=== PATIENT | male | born 1950 | race Caucasian/White ===

== ENCOUNTER 2024-09-08 12:44 | Outpatient (CLI) | payer MEDICARE, SELFPAY ==
--- NOTE | ~2024-09-08 | PE_ITS ---
EXAMINATION: PET_PETPSMAST_PT DATE: 09/08/2024 14:58 INDICATION: Prostate cancer TECHNIQUE: 5.717 mCi of Illucix Ga-68([id number]) was administered i.v. Low dose computed nell graphy (CT) images were acquired from the base of the brain to the base of the brain to the proximal thighs for attenuation correction and anatomic localization. Positron emission tomography (PET) image s were acquired in the same distribution beginning 84 minutes after injection. Images including fused PET/CT images were reconstructed in axial, coronal, and sagittal planes. Automated exposure control technique was employed. The dose-length product was 1192.44mGy-cm. COMPARISON: None FINDINGS: Head/neck: Typical pattern of symmetric physiologic increased activity in the lacrimal, parotid and submandibula r glands as well as along the mucosa of the nasal and oral cavities, pharynx and hypopharynx. No path ologically enlarged cervical lymphadenopathy or suspicious foci of increased uptake in the visualized head or neck. Chest: Mild dependent atelectasis in the bilateral lower lobes. Small region of relatively lucent air trappi ng at the medial aspect of the left apex. No suspicious pulmonary nodules, pneumonia, pulmonary edema or pleural effusion. Heart size normal. Atherosclerotic coronary artery calcific lesion. No pericard ial effusion. Ectatic ascending thoracic aorta measuring up to 4.1 cm maximal diameter. No pathologic ally enlarged or PSMA avid thoracic lymphadenopathy. Abdomen/pelvis/proximal thighs: Physiologic renal accumulation and excretion of activity in the kidneys, bladder and along portions o f ureters. Mild prostatomegaly measuring 4.1 x 3.5 cm. There is asymmetric mild increased uptake william g the left posterior aspect of the prostate with maximal SUV of 4.9 likely representing the site of t he reported primary prostate cancer. Normal degree and slightly heterogenous pattern of increased upt helene throughout the liver and spleen without radiologic correlate or dominant PSMA avid lesion. Cholec ystectomy clips the gallbladder fossa. The pancreas and bilateral adrenal glands are normal. Moderate uptake scattered throughout the bowels with typical duodenal and proximal jejunal predominance and w ithout radiologic correlate, also likely physiologic. Postoperative change of likely prior left ingui nal hernia mesh repair. No other abnormal foci of increased uptake or pathologically enlarged lymphad enopathy in the abdomen, pelvis or proximal thighs. Musculoskeletal: There is linear mild uptake extending horizontally along the severely narrowed L4-L5 and right-sided the L3-L4 disc spaces, the former with maximal SUV of 4.8 and the latter with maximal SUV of 2.8. The re are associated degenerative endplate changes but no definitive lytic or blastic bone lesion and fa vor inflammatory related activities related to degenerative disc disease over metastatic disease. No other suspicious lytic, blastic or abnormally PSMA avid bone lesions. Reverse left total shoulder art hroplasty. IMPRESSION: 1. Mild uptake at the left posterior aspect of the mildly enlarged prostate consistent with primary p rostate cancer. 2. Thin bands of mild uptake aligned along the severely narrowed L5 for L5 and right-sided L3-L4 disc spaces with corresponding degenerative endplate changes but no definitive underlying lytic or blasti c bone lesion to elevate suspicion for metastatic disease and this more likely inflammatory related t o the degenerative disc disease. Also arguing against metastatic disease in the absence of any other evident metastatic disease. Reviewed, dictated and finalized at location A. IMPRESSION: 1. Mild uptake at the left posterior aspect of the mildly enlarged prostate con sistent with primary prostate cancer. 2. Thin bands of mild uptake aligned along the severely narrowed L5 for L5 and right-sided L3-L4 disc spaces with corresponding degenerative endplate changes but no definitive underlying lytic or blastic bone lesion to elevate suspicion for metastatic disease and this more likely inflammatory related to the degener ative disc disease. Also arguing against metastatic disease in the absence of a ny other evident metastatic disease.
--- OUTSIDE RECORDS SUMMARY | 2024-09-08 12:49 | XMS_ITS | Clinical Summary ---
Author Organization [facility] Medical Office Building A Address [address] [place] [address] Care Team Providers Care Borough Coordinator Name Role Phone Ki Roblero MD Primary Care Provider + Lory Desouza Unavailable Allergies Active Allergy Reactions Criticality Noted Date Comments Penicillin V Rash Medium Penicillins Rash Medium Reaction: Swelling, , Reaction: Unknown, , Medications fluticasone (FLONASE) 50 mcg/actuation nasal spray inhale 2 spray by Intranasal route every day in each nostril 1 11 1 Active omega-3 fatty acids-fish oil 340-1,000 mg capsule 0 0 Active rosuvastatin (CRESTOR) 20 mg tablet Take 1 tablet (20 mg total) by mouth daily 2 Active ascorbic acid (VITAMIN C) 500 mg tablet,chewable Take 1 tablet/chew tab (500 mg total) by mouth 2 (two) times a day 60 tablet/chew tab 2 Active aspirin 81 mg enteric coated tabletIndicatio ns:prevention of thrombosis Take 1 tablet (81 mg total) by mouth 2 (two) times a day for 14 days 28 tablet 2 Active cholecalciferol (VITAMIN D-3) 2000 unit capsule Take 1 capsule (2,000 Units total) by mouth daily 30 capsule 2 Active senna-docusate (PERICOLACE) 8.6-50 mg 1-2 times daily as needed for constipation 60 tablet [address] (DEPAKOTE) 250 mg EC tabletIndicatio ns:Recurrent major depression in partial remission TAKE 1 TABLET BY MOUTH THREE TIMES DAILY 270 tablet 5 Active PARoxetine (PAXIL) 40 mg tabletIndicatio ns:Recurrent major depression in partial remission TAKE 1 TABLET BY MOUTH EVERY MORNING 90 tablet 5 Active LORazepam (ATIVAN) 1 mg tabletIndicatio ns:anxiety TAKE 1 TABLET BY MOUTH UP TO FOUR TIMES DAILY FOR ANXIETY 120 tablet 1 5 Active Active Problems Problem Noted Date Diagnosed Date Family history of colon cancer 06/04/2022 Personal history of colonic polyps 06/04/2022 Hemorrhoids 06/04/2022 Primary osteoarthritis of left shoulder 08/17/19 22 Overview (08/16/2021): Added automatically from request for surgery [id number] Arthritis of left acromioclavicular joint 2021 Overview (08/16/2021): Added automatically from request for surgery [id number] Nontraumatic tear of left rotator cuff 2 Overview (08/16/2021): Added automatically from request for surgery [id number] Superior glenoid labrum lesion of left shoulder 08/16/2021 Overview (08/16/2021): Added automatically from request for surgery [id number] Hearing loss of left ear 01/14/2019 Dental caries 01/14/2019 Assessment & Plan (01/14/2019 1:25 PM AIRCRAFT SALES REPRESENTATIVE): Recommend Dental Evaluation List of dental providers contact information provided today BMI 27.0-27.9,adult 12/23/2016 Assessment & Plan (12/23/2016 9:13 AM AIRCRAFT SALES REPRESENTATIVE): Recommended patient to continue to increase heart healthy diet with adequate fruits, vegetables, and plenty of water along with mild-moderate daily exercise as tolerated. Acute pain of right wrist 12/23/2016 Assessment & Plan (12/23/2016 9:26 AM AIRCRAFT SALES REPRESENTATIVE): I advised patient to try splinting his rest along with naproxen 500 mg b.i.d. with food Additionally, imaging was completed due to the pinpoint tenderness to ensure that there is no LN fracture associated with his acute injury. Of right hand and wrist. Will follow up with patient regarding results of imaging tomorrow over the phone and need for additional management Elevated blood pressure reading 12/23/2016 Assessment & Plan (12/23/2016 9:27 AM AIRCRAFT SALES REPRESENTATIVE): I advised patient to continue with dash diet and monitoring of blood pressures as he has a cuff at home. I also advised patient to touch base with Dr. roblero new office within the next 1-2 weeks to check on blood pressure ensure that is adequately he told also advised to avoid uoip-geh-bwxyyld decongestants or stimulants of any sort and he will continue to monitor for any signs and symptoms of elevated blood pressure readings which was educated about office today. Healthcare maintenance 2016 Medication management 2016 Bipolar disorder, in full re mission, most recent episode mixed 2016 IVCD (intraventricular conduction defect) 2016 Skin lesion of back 2016 Benign neoplasm of large intestine 06/25/2013 Overview (05/14/2016): BENIGN NEOPLASM LG BOWEL Disorder of shoulder 06/25/2013 Overview (05/16/2016): SHOULDER REGION DIS NEC Anxiety state 06/25/2013 Overview (05/16/2016): ANXIETY STATE NOS Multiple-type hyperlipidemia 06/25/2013 Overview (05/16/2016): MIXED HYPERLIPIDEMIA Encounters Date Type Department Care Team Description 06/21/2024 8:52 AM CDT - 06/21/2024 11:59 PM CDT Hospital Encounter [facility] [address] [place] [address] Elevated prostate specific antigen (PSA) Discharge Disposition: Discharge to home or self care from Last 3 Months Immunizations Immunization Administration Dates Next Due Influenza, Quadrivalent, Spl it, Preservative Free, Intradermal 02/06/2016,01/18/2015 Influenza, Split 12/28/2012,12/25/2011, 0 Influenza, Trivalent, High D ose, Split, Preservative Free, Intramuscular 12/23/2016 Influenza, Trivalent, IM (MDV) 11/13/2010,2008 Influenza, Trivalent, Recomb inant, Egg Free, Preservative Free, Antibiotic Free, IM (FLUBLOK) 01/10/2014,01/10/2014 Pneumococcal Conjugate PCV 13 2016 Tdap 08/23/2008 ZOSTER LIVE 01/19/2012 Surgical History Surgery Date Site/Laterality Comments CARPAL TUNNEL RELEASE 2009 Carpal tunnel release OTHER SURGICAL HISTORY Both Shoulder surgery BACK SURGERY Back surgery CARPAL TUNNEL RELEASE Carpal tunnel release TONSILLECTOMY Tonsillectomy HERNIA REPAIR Hernia repair APPENDECTOMY Appendectomy EYE SURGERY Left eye Surgery BACK SURGERY 2001 Back surgery CARPAL TUNNEL RELEASE 2001 Bilateral Carpal tunnel release KNEE ARTHROSCOPY 2012 Right Arthroscopy knee SHOULDER SURGERY Bilateral shoulder surgery OTHER SURGICAL HISTORY right knee surgery / arthroscopic INGUINAL HERNIA REPAIR Hernia repair, inguinal LAPAROSCOPIC CHOLECYSTECTOMY 2014 Cholecystectomy, laparoscopic COLONOSCOPY 10/11/2015 - 11/09/2015 Medical History Medical History Date Comments Hx Other Medical 2006 stress test Hx Other Medical 2004 cxr Hx Other Medical 1996 appendix Hx Other Medical 1955 tonsilectomy Hx Other Medical 2008 ulnar n reposit ion Hx Other Medical Hernia repair, umbilical Hx Other Medical 2000 back surgery Hx Other Medical radial n. surge ry Hx Other Medical eye surgery x2- 3 Hx Other Medical 02/2009 B/L shoulder dunlap rgeries Depression Depression Hyperlipidemia Hyperlipidemia Anxiety disorder Anxiety Hx Other Medical 02/20/2010 C4-5 microendos copic foraminotomy; Laterality: right Alcoholism (HCC) Alcoholism Hx Other Medical 2009 left andr right rotator cuff repair Hx Other Medical eye surgery Hx Other Medical elbow surgery Hx Other Medical 10/06/2011 knee arthroscop y; Laterality: right Hx Other Medical 02/23/2012 Knee arthroscop y; Laterality: right Hx Other Medical Cholecystectomy GERD (gastroesophageal reflu x disease) Family History Medical History Relation Name Comments Other Brother 3 Alive and well; Other Brother 4 Alive and well; Other Father Alive and well; Coronary artery disease Maternal Grandmother Coronary artery disease; Cancer Mother Cancer -; /Canc er; GDS 04/20/2014 -ovarian Ovarian cancer Mother Cancer -ovari an; Diabetes type II Mother's Brother 1 Diabe donnie -Type II; Leukemia Mother's Brother 2 Cancer -l eukemia; Other Other 1 No family histo ry of Hypertension; Heart disease Other 2 Heart disease; Breast cancer Other 3 Family history of Cancer, breast; Stroke Paternal Grandmother Stroke; Cancer Sister Cancer -; Relation Name Status Comments Brother 1 Alive Brother 2 Alive Brother 3 Brother 4 Father Alive Maternal Grandmother Mother Mother's Brother 1 Mother's Brother 2 Other 1 Other 2 Other 3 Paternal Grandmother Sister Social History Tobacco Use Types Packs/Day Years Used Date Smoking Tobacco: Former Smokeless Tobacco: Never Alcohol Use Standard Drinks/Week Comments No 0 (1 standard drink = 0.6 oz pur e alcohol) AUDIT-C Answer Date Recorded Frequency of Alcohol Consumption Not on file 08/29/2021 Q2: How many drinks containi ng alcohol do you have on a typical day when you are drinking? Patient does not drink Frequency of Binge Drinking Not on file 08/10 Personal Safety Answer Date Recorded Have you ever been in or are you currently in a harmful physical or emotional relationship or is someone making you feel afraid or unsafe? Denies 06/24/2022 Sex and Gender Information Value Date Recorded Sex Assigned at Not on file Legal Sex Male 11:51 PM AIRCRAFT SALES REPRESENTATIVE Gender Identity Not on file Sexual Orientation Not on file Obstetrics History Last Filed Vital Signs Vital Sign Reading Time Taken Comments Blood Pressure 146/99 09/09/2022 1:39 PM CDT Pulse 76 09/09/2022 1:39 PM CDT Temperature 36.8 C (98.2 F) 06/24/2022 8:45 AM CDT Respiratory Rate 18 06/24/2022 8:45 AM CDT Oxygen Saturation 99% 06/24/2022 8:45 AM CDT Inhaled Oxygen Concentration - - Weight 86.6 kg (191 lb) 09/09/2022 1:39 PM CDT Height 182.9 cm (6') 09/09/2022 1:39 PM CDT Body Mass Index 25.9 09/09/2022 1:39 PM CDT Plan of Treatment Health Maintenance Due Date Last Done Comments Fall Risk Assessment 1950 Hepatitis B Screening 08/06/1969 Abdominal Aortic Aneurysm (A AA) Screen 08/06/2016 04/13/2014 Well Visit 65+ 2017 2016 Depression Screening 12/23/2017 12/23/2016, 08/08/19 17 DTaP/Tdap/Td Vaccine (2 - Td or Tdap) 08/23/2018 08/23/2008 Zoster Vaccine (3 of 3) 06/13/2019 04/18/2019, 01/18 Covid-19 Vaccine (4 - 2023-2 5 season) 2023 01/21/2021, 04/28/2020, 04/07/2020 Influenza Vaccine (#1) 2024 , 11/30/2019, 04/18/2019, Additional history exists Colon Cancer Screening-Colonoscopy 06/25/2027 06/24/2022, 10/25/2015, 10/25/2015, Additional history exists Hepatitis C Screening Completed 04/11/2014 Pneumococcal vaccine 65+ Completed 04/18/2019, 07/11 Colon Cancer Screening-CT Colonography Discontinued 06/24/2022, 10/25/2015, 10/25/2015, Additional history exists Colon Cancer Screening-DNA Stool Discontinued 06/24/2022, 10/25/2015, 10/25/2015, Additional history exists Colon Cancer Screening-FIT Discontinued 06/24, 10/25/2015, 10/25/2015, Additional history exists Colon Cancer Screening-Sigmoidoscopy Discontinued 06/24/2022, 10/25/2015, 10/25/2015, Additional history exists Medical Devices Implanted Type Area Joist Setter Device Identifier Shelf Expiration Date Model / Serial / Lot Exactech Reverse Torque Define Shoulder Kit Screw 320-20-00 - [id number] - [id number] Implanted:Qty: 1 on 09/05/2021 by Cem Guzman MD at [facility] Left: Shoulder Exactech 08/18/2026 320-20-00 / [id number] / Exactech Equinoxe Lock Reverse Shoulder Glenosphere Screw Bone 320-15-05 - [id number] - [id number] Implanted:Qty: 1 on 09/05/2021 by Cem Guzman MD at [facility] Left: Shoulder Exactech 08/05/2026 320-15-05 / [id number] / Exactech Equinoxe Superior Posterior Augment Shoulder Left 10d 8d 320-15-07 - [id number] - [id number] Implanted:Qty: 1 on 09/05/2021 by Cem Guzman MD at [facility] Left: Shoulder Exactech 03/27/2030 320-15- / [id number] / Exactech Equinoxe 4.5mm 46mm Kit Compression Lock Cap Reverse Shoulder 320-20-46 - [id number] - [id number] Implanted:Qty: 1 on 09/05/2021 by Cem Guzman MD at [facility] Left: Shoulder Exactech 07/07/2023 320-20-46 / [id number] / Exactech Equinoxe 4.5mm 38mm Kit Compression Lock Cap Reverse Shoulder 320-20-38 - [id number] - [id number] Implanted:Qty: 1 on 09/05/2021 by Cem Guzman MD at [facility] Left: Shoulder Exactech 07/17/2026 320-20-38 / [id number] / Exactech Stem 70mm 11mm Humeral Equinoxe Shoulder Sterile 300-30-11 - [id number] - [id number] Implanted:Qty: 1 on 09/05/2021 by Cem Guzman MD at [facility] Left: Shoulder Exactech 07/23/2030 300-30-11 / [id number] / Exactech Component 42mm Glenosphere Extended Locking Cap Kit 320-06-42 - [id number] - [id number] Implanted:Qty: 1 on 09/05/2021 by Cem Guzman MD at [facility] Left: Shoulder Exactech 08/01/2029 320-06-42 / [id number] / Exactech Equinoxe Reverse Shoulder +0mm Tray Humeral Adapter 320-10-00 - [id number] - [id number] Implanted:Qty: 1 on 09/05/2021 by Cem uGzman MD at [facility] Left: Shoulder Exactech 08/13/2031 320-10-00 / [id number] / Exactech Equinoxe 42mm Reverse Shoulder +0mm Liner Humeral 320-42-00 - [id number] - [id number] Implanted:Qty: 1 on 09/05/2021 by Cem Guzman MD at [facility] Left: Shoulder Exactech 07/02/2025 320-42-00 / [id number] / Procedures Procedure Name Priority Date/Time Associated Diagnosis Comments MRI PELVIS PROSTATE W WO CONTRAST Schedule Routine, Read Routine (OP Routine) 06/21/2024 11:08 AM CDT Elevated prostate specific antigen (PSA) COLONOSCOPY 06/24/2022 7:[address] ABDOMEN PELVIS W CONTRAST Routine 04/13/2014 11:30 AM AIRCRAFT SALES REPRESENTATIVE SERUM HEPATITIS C AB Routine 04/11/2014 1:45 PM AIRCRAFT SALES REPRESENTATIVE from Last 3 Months or Most Recently Relevant to Health Maintenance Results * MRI Pelvis Prostate W WO Contrast (06/21/2024 11:08 AM CDT) Anatomical Region Laterality Modality Body N/A Magnetic Resonan ce 06/21/2024 1:2 1 PM CDT Impressions 06/21/2024 3:03 PM CDT 1. A lesion in the left junction of medial and lateral peripheral zone at the mid gland is at high suspicion for malignancy with an overall PI-RADS score of 4. EPE=0. Dictated by: Thomas Quinteros MD The radiology attending physician has personally reviewed this study, and had reviewed and/or edited this written report and agrees with it. Electronically signed by: Damien Calabrese M.D. Narrative 06/21/2024 3:03 PM CDT EXAMINATION: MAGNETIC RESONANCE IMAGING OF THE PELVIS WITHOUT AND WITH CONTRAST HISTORY: Elevated PSA of 6.44 months ago, increased from 1.4 in 2016 TECHNIQUE: MR imaging of the prostate gland was performed with a torso phased array coil prior to and following administration of intravenous gadolinium. Protocol: Prostate 3T Contrast: Gadoterate Meglumine 20 mL COMPARISON: None FINDINGS: Prostate volume: 38 cc The prostate transition zone is enlarged with benign prostatic hyperplasia. The prostate was assessed using the PI-RADS version 2.1 scoring system. The following lesions are of at least intermediate suspicion (PI-RADS 3 or greater): Lesion 1: Side: left Location: junction of medial and lateral Zone: peripheral zone Craniocaudal: mid gland Aceves images: series 11, image 28 Size: 0.4 mL; largest axial dimensions 1.0 x 0.8 cm Extraprostatic extension: - tumor contact length with prostate margin: 8 mm - margin bulge/irregularity: no - rectoprostatic angle obliteration: no - neurovascular bundle asymmetry: no - gross extraprostatic extension: no - overall EPE grade: 0 (no suspicion for pathologic EPE) T2WI score: 3 DWI score: 3 DCE: positive Overall PI-RADS v2.1 assessment: 4 Staging Information: No enlarged lymph nodes are identified. No suspicious osseous lesions are identified. Other findings: Normal bladder and imaged bowel. Bilateral hydroceles. No ascites. Procedure Note Damien Calabrese MD - 06/21/2024 EXAMINATION: MAGNETIC RESONANCE IMAGING OF THE PELVIS WITHOUT AND WITH CONTRAST HISTORY: Elevated PSA of 6.44 months ago, increased from 1.4 in 2016 TECHNIQUE: MR imaging of the prostate gland was performed with a torso phased array coil prior to and following administration of intravenous gadolinium. Protocol: Prostate 3T Contrast: Gadoterate Meglumine 20 mL COMPARISON: None FINDINGS: Prostate volume: 38 cc The prostate transition zone is enlarged with benign prostatic hyperplasia. The prostate was assessed using the PI-RADS version 2.1 scoring system. The following lesions are of at least intermediate suspicion (PI-RADS 3 or greater): Lesion 1: Side: left Location: junction of medial and lateral Zone: peripheral zone Craniocaudal: mid gland Aceves images: series 11, image 28 Size: 0.4 mL; largest axial dimensions 1.0 x 0.8 cm Extraprostatic extension: - tumor contact length with prostate margin: 8 mm - margin bulge/irregularity: no - rectoprostatic angle obliteration: no - neurovascular bundle asymmetry: no - gross extraprostatic extension: no - overall EPE grade: 0 (no suspicion for pathologic EPE) T2WI score: 3 DWI score: 3 DCE: positive Overall PI-RADS v2.1 assessment: 4 Staging Information: No enlarged lymph nodes are identified. No suspicious osseous lesions are identified. Other findings: Normal bladder and imaged bowel. Bilateral hydroceles. No ascites. IMPRESSION: 1. A lesion in the left junction of medial and lateral peripheral zone at the mid gland is at high suspicion for malignancy with an overall PI-RADS score of 4. EPE=0. Dictated by: Thomas Quinteros MD The radiology attending physician has personally reviewed this study, and had reviewed and/or edited this written report and agrees with it. Electronically signed by: Damien Calabrese M.D. us Richar Diaz MD IMG MRI PROCEDURES Final Resul t * COLONOSCOPY (06/24/2022 7:13 AM CDT) Anatomical Region Laterality Modality Other Narrative Procedure Note Adam Muñiz MD - 06/24/2022 7:13 AM CDT [facility] Patient Name: Cristofer Hurtado Procedure Date: 06/24/2022 7:13 AM Date of : 1950 Admit Type: Outpatient Age: 71 Gender: Male Attending MD: Adam Muñiz M.D. Room: [facility] ENDOSCOPY ROOM 2 Note Status: Finalized Patient Profile: Refer to note in patient chart for documentation of history and physical. Procedure: Colonoscopy Indications: High risk colon cancer surveillance: Personalhistory of colonic polyps, Last colonoscopy: October2015 Referring MD: Ki Roblero M.D. Providers: Adam Muñiz M.D. Impression: - Hemorrhoids found on perianal exam. - One 3 mm polyp in the ascending colon, removedwith a cold snare. Resected and retrieved. - The examination was otherwise normal. Recommendation: - Discharge patient to home. - Resume previous diet. - Continue present medications. - Await pathology results. - Repeat colonoscopy in 5 years for surveillance. - Return to primary care physician as previously scheduled. Medicines: Propofol per Anesthesia Complications: No immediate complications. Estimated Blood Loss: Estimated blood loss: none. Procedure: Pre-Anesthesia Assessment: - This assessment was completed [Time ofAssessment] prior to the administration of sedation. The benefits, risks and alternatives of theprocedure and sedation were discussed and informed consentwas obtained. All questions were answered. Please referto the signed informed consent document in the medical record. The bowel preparation used was Miralax and bisacodyl tablets via split dose instruction. The scope was passed under direct vision. TheColonoscope [id number] was introduced through the anus and advanced to the the terminal ileum. The colonoscopy was performed without difficulty. The patient tolerated the procedure well. The qualityof the bowel preparation was good. The terminal ileum, ileocecal valve, appendiceal orifice, and rectumwere photographed. Findings: Hemorrhoids were found on perianal exam. A 3 mm polyp was found in the ascending colon. The polyp was sessile. The polyp was removed with a cold snare. Resection and retrieval were complete. Verification of patient identification for the specimen was done by the physician and nurse using the patient's name and birthdate. Estimated blood loss was minimal. The exam was otherwise without abnormality. Electronically signed by Adam Muñiz M.D. Adam Muñiz M.D. 06/24/2022 8:13:12 AM Number of Addenda: 0 Note Initiated On: 06/24/2022 7:13 AM Procedure Code(s): --- Professional --- 35828, Colonoscopy, flexible; with removal of tumor(s), polyp(s), or other lesion(s) by snare technique --- Technical --- 29103, Colonoscopy, flexible; with removal of tumor(s), polyp(s), or other lesion(s) by snare technique Diagnosis Code(s): --- Professional --- D12.2, Benign neoplasm of ascending colon K64.9, Unspecified hemorrhoids Z86.010, Personal history of colonic polyps --- Technical --- D12.2, Benign neoplasm of ascending colon K64.9, Unspecified hemorrhoids Z86.010, Personal history of colonic polyps CPT copyright 2020 [employer]. All rights reserved. The codes documented in this report are preliminary and upon waxer reviewmay be revised to meet current compliance requirements. Recognized by the [employer] for promoting quality in endoscopy us Adam Muñiz MD ENDOSCOPY PROCEDURES Final Re sult * CT Abdomen Pelvis W Contrast (04/13/2014 11:30 AM AIRCRAFT SALES REPRESENTATIVE) Anatomical Region Laterality Modality Body N/A Computed Tomogra phy 04/13/2014 11:3 0 AM AIRCRAFT SALES REPRESENTATIVE Narrative 04/13/2014 6:[address] [address] Abd/Pel W [id number] Acc#: [id number] DATE OF EXAM: Apr 13 2014 CLINICAL HISTORY: Anorexia. Loss of appetite. RESULT: Helical CT scan of the abdomen and pelvis obtained following intravenous and oral administration of contrast. 100 ml of Optiray 320. Images from the lung bases to the ischial tuberosities. Mildly diminished attenuation liver parenchyma consistent with hepatic steatosis. Two small stones are seen within the gallbladder, larger of the two measuring 3 mm. No pericholecystic fluid or inflammation identified. Spleen size within the normal range. No pancreatic mass identified. Kidneys demonstrate no evidence of hydronephrosis. No adrenal mass identified. Air and fecal material are seen throughout the colon. No significantly dilated small bowel loops are evident. Prostate gland is somewhat prominent, the transverse dimension of 5.0 cm. Small prostate calcification to the left of the midline. Urinary bladder is well distended with urine and contrast. Normal contour. In the lung bases, no infiltrate or effusion identified. Degenerative changes lumbar spine and lower thoracic spine with spurring. Degenerative disc disease particularly L4-5 and L5-S1. Small umbilical hernia containing only adipose tissue. Fairly minimal calcification abdominal aorta and iliac arteries consistent with arteriosclerotic changes. A few retroperitoneal lymph nodes primarily periaortic region on the left. These are not significantly enlarged, and of questionable clinical significance. IMPRESSION: 1. CHOLELITHIASIS, WITH TWO SMALL STONES SEEN. NO PERICHOLECYSTIC FLUID OR INFLAMMATION IDENTIFIED. 2. MILD HEPATIC STEATOSIS. 3. PROSTATOMEGALY. Interpreting Physician: KATIUSKA MCLAIN M.D. Read on: Apr 13 2014 11:46A Transcribed by: janet On: Apr 13 2014 3:01P Approved Electronically by: KATIUSKA MCLAIN M.D. on: Apr 13 2014 6:05P Attending: DR KI ROBLERO Requesting: DR KI ROBLERO Requesting Fax: -- Attending Fax: -- Attending ID: [id number] Requesting ID: [id number] Report To 1 ID: [id number] Report To 1 Name: DR KI ROBLERO Report To 1 FAX: -- NextGen Order #: Procedure Note Provider, MD Wilfrido - 06/04/2016 CT Abd/Pel W [id number] Acc#: [id number] DATE OF EXAM: Apr 13 2014 CLINICAL HISTORY: Anorexia. Loss of appetite. RESULT: Helical CT scan of the abdomen and pelvis obtained following intravenousand oral administration of contrast. 100 ml of Optiray 320. Images fromthe lung bases to the ischial tuberosities. Mildly diminished attenuationliver parenchyma consistent with hepatic steatosis. Two small stones areseen within the gallbladder, larger of the two measuring 3 mm. Nopericholecystic fluid or inflammation identified. Spleen size within thenormal range. No pancreatic mass identified. Kidneys demonstrate noevidence of hydronephrosis. No adrenal mass identified. Air and fecalmaterial are seen throughout the colon. No significantly dilated smallbowel loops are evident. Prostate gland is somewhat prominent, thetransverse dimension of 5.0 cm. Small prostate calcification to the leftof the midline. Urinary bladder is well distended with urine andcontrast. Normal contour. In the lung bases, no infiltrate or effusionidentified. Degenerative changes lumbar spine and lower thoracic spine with spurring. Degenerative disc disease particularly L4-5 andL5-S1. Small umbilical hernia containing only adipose tissue. Fairlyminimal calcification abdominal aorta and iliac arteries consistent witharteriosclerotic changes. A few retroperitoneal lymph nodes primarilyperiaortic region on the left. These are not significantly enlarged, andof questionable clinical significance. IMPRESSION: 1. CHOLELITHIASIS, WITH TWO SMALL STONES SEEN. NO PERICHOLECYSTIC FLUIDOR INFLAMMATION IDENTIFIED. 2. MILD HEPATIC STEATOSIS. 3. PROSTATOMEGALY. Interpreting Physician: KATIUSKA MCLAIN M.D. Read on: Apr 13 2014 11:46A Transcribed by: janet On: Apr 13 2014 3:01P Approved Electronically by: KATIUSKA MCLAIN M.D. on: Apr 13 2014 6:05P Attending: DR KI ROBLERO Requesting: DR KI ROBLERO Requesting Fax: -- Attending Fax: -- Attending ID: [id number] Requesting ID: [id number] Report To 1 ID: [id number] Report To 1 Name: DR KI ROBLERO Report To 1 FAX: -- NextGen Order #: us Historical Provider IMG CT PROCEDURES Final R esult * Serum Hepatitis C ab (04/11/2014 1:45 PM AIRCRAFT SALES REPRESENTATIVE) HCV ab Negative Negative HISTORICAL RESULTS Serum 04/11/2014 1:45 PM AIRCRAFT SALES REPRESENTATIVE Ki Roblero MD LAB BLOOD ORDERABLES Fin al Result HISTORICAL RESULTS from Last 3 Months or Most Recently Relevant to Health Maintenance Insurance [facility] MEDICARE ADVANTAGE [facility] MEDICARE [id number] [facility] MEDICARE ADVANTAGE [facility] MEDICARE ADVANTAGE Advance Directives For more information, please contact: [phone] * Full Code (Latest Code Status on File) Date Activated Date Inactivated Comments 06/24/2022 7:07 AM 06/24/2022 12:55 PM * Full Code Date Activated Date Inactivated Comments 06/24/2022 7:07 AM 06/24/2022 7:07 AM Care Teams Borough Coordinator Relationship Specialty Start Date End Date Ki Roblero MD [address] [facility] [place] [address] PCP - General 05/09/16 Lory Desouza PA [address] [facility] [place] [address] Physician Customer Operations Associate Orthopedic Surgery 09/05/21
--- OUTSIDE RECORDS SUMMARY | 2024-09-08 12:49 | XMS_ITS | Referral Summary ---
Author Organization [facility] Address [address] [place] [address] Care Team Providers Care Director Of Occupational Health Name Role Phone Earl Roblero MD Primary Care Provider + Lory Desouza Unavailable [phone] Encounters Date Type Department Care Team Description 06/21/2024 8:52 AM CDT - 06/21/2024 11:59 PM CDT Hospital Encounter [facility] - Imaging [address] [place] [address] Elevated prostate specific antigen (PSA) Discharge Disposition: Discharge to home or self care from Last 3 Months Allergies Active Allergy Reactions Criticality Noted Date [...] (08/16/2021): Added automatically from request for surgery [id number] Arthritis of left acromioclavicular joint 2021 Overview (08/16/2021): Added automatically from request for surgery [id number] Nontraumatic tear of left rotator cuff 2 Overview (08/16/2021): Added automatically from request for surgery [id number] Superior glenoid labrum lesion of left shoulder 08/16/2021 Overview (08/16/2021): Added automatically from request for surgery [id number] Hearing loss of left ear 01/14/2019 Dental caries 01/14/2019 Assessment & Plan (01/14/2019 1:25 PM AIRCRAFT ELECTRICAL SYSTEMS SPECIALIST): Recommend Dental Evaluation List of dental providers contact information provided today BMI 27.0-27.9,adult 12/23/2016 Assessment & Plan (12/23/2016 9:13 AM AIRCRAFT ELECTRICAL SYSTEMS SPECIALIST): Recommended patient to continue to increase heart healthy diet with adequate fruits, vegetables, and plenty of water along with mild-moderate daily exercise as tolerated. Acute pain of right wrist 12/23/2016 Assessment & Plan (12/23/2016 9:26 AM AIRCRAFT ELECTRICAL SYSTEMS SPECIALIST): I advised patient to try splinting his [...] Assessment & Plan (12/23/2016 9:27 AM AIRCRAFT ELECTRICAL SYSTEMS SPECIALIST): I advised patient to continue with dash diet and monitoring of blood pressures as he has a cuff at home. I also advised patient to touch base with Dr. roblero new office within the next 1-2 weeks to check on blood pressure ensure that is adequately he told also advised to avoid [id number]-[id number] decongestants or stimulants of any sort and [...] Multiple-type hyperlipidemia 06/25/2013 Overview (05/16/2016): MIXED HYPERLIPIDEMIA Immunizations Immunization Administration Dates Next Due Influenza, Quadrivalent, Spl it, Preservative Free, Intradermal 02/06/2016,01/18/2015 Influenza, Split 12/28/2012,12/25/2011, 0 Influenza, Trivalent, High D ose, Split, Preservative Free, Intramuscular 12/23/2016 Influenza, Trivalent, IM (MDV) 11/13/2010,2008 Influenza, Trivalent, Recomb inant, Egg Free, Preservative Free, Antibiotic Free, IM (FLUBLOK) 01/10/2014,01/10/2014 Pneumococcal Conjugate PCV 13 2016 Tdap 08/23/2008 ZOSTER LIVE 01/19/2012 Social History Tobacco Use Types Packs/Day Years [...] file Legal Sex Male 11:51 PM AIRCRAFT ELECTRICAL SYSTEMS SPECIALIST Gender Identity Not on file Sexual Orientation Not on file Last Filed Vital Signs Vital Sign Reading [...] 09/09/2022 1:39 PM CDT Plan of Treatment Not on file Medical Devices Implanted Type Area Account Manager Trainee Device Identifier Shelf Expiration Date Model / Serial / Lot Exactech Reverse Torque Define Shoulder Kit Screw 320-20-00 - [id number] - [id number] Implanted:Qty: 1 on 09/05/2021 by Cem Guzman MD at [facility] Left: Shoulder Exactech 08/18/2026 320-20-00 / [id number] / Exactech Equinoxe Lock Reverse Shoulder Glenosphere Screw Bone 320-15- - [id number] - [id number] Implanted:Qty: 1 on 09/05/2021 by Cem Guzman MD at [facility] Left: Shoulder Exactech 08/05/2026 320-15- / [id number] / Exactech Equinoxe Superior Posterior Augment Shoulder Left 10d 8d 320-15- - [id number] - [id number] Implanted:Qty: 1 on 09/05/2021 by Cem Guzman MD at [facility] Left: Shoulder Exactech 03/27/2030 320-15 / [id number] / Exactech Equinoxe 4.5mm 46mm Kit Compression Lock Cap Reverse Shoulder 320-20-46 - [id number] - [id number] Implanted:Qty: 1 on 09/05/2021 by Cem Guzman MD at [facility] Left: Shoulder Exactech 07/07/2023 320-20-46 / [id number] / Exactech Equinoxe 4.5mm 38mm Kit Compression Lock Cap Reverse Shoulder 320-20-38 - [id number] - [id number] Implanted:Qty: 1 on 09/05/2021 by Cem Guzman MD at [facility] Left: Shoulder Exactech 07/17/2026 320-20-38 / [id number] / Exactech Stem 70mm 11mm Humeral Equinoxe Shoulder Sterile 300-30-11 - [id number] - [id number] Implanted:Qty: 1 on 09/05/2021 by Cem Guzman MD at [facility] Left: Shoulder Exactech 07/23/2030 300-30-11 / [id number] / Exactech Component 42mm Glenosphere Extended Locking Cap Kit 320-06-42 - [id number] - [id number] Implanted:Qty: 1 on 09/05/2021 by Cem Guzman MD at [facility] Left: Shoulder Exactech 08/01/2029 320-06-42 / [id number] / Exactech Equinoxe Reverse Shoulder +0mm Tray Humeral Adapter 320-10-00 - [id number] - [id number] Implanted:Qty: 1 on 09/05/2021 by Cem Guzman MD at [facility] Left: Shoulder Exactech 08/13/2031 320-10-00 / [id number] / Exactech Equinoxe 42mm Reverse Shoulder +0mm Liner Humeral [facility]-42-00 - [id number] - [id number] Implanted:Qty: 1 on 09/05/2021 by Cem Guzman MD at [facility] Left: Shoulder Exactech 07/02/2025 320-42-00 / [id number] / Procedures Procedure Name Priority Date/Time Associated Diagnosis Comments MRI PELVIS PROSTATE W WO CONTRAST Schedule Routine, Read Routine (OP Routine) 06/21/2024 11:08 AM CDT Elevated prostate specific antigen (PSA) COLONOSCOPY 06/24/2022 7:[address] ABDOMEN PELVIS W CONTRAST Routine 04/13/2014 11:30 AM AIRCRAFT ELECTRICAL SYSTEMS SPECIALIST SERUM HEPATITIS C AB Routine 04/11/2014 1:45 PM AIRCRAFT ELECTRICAL SYSTEMS SPECIALIST from Last 3 Months or Most Recently Relevant to Health Maintenance Results * MRI Pelvis Prostate W WO Contrast (06/21/2024 11:08 AM CDT) Anatomical Region Laterality Modality Body N/A Magnetic Resonan ce 06/21/2024 1:21 PM CDT Impressions 06/21/2024 3:03 PM CDT [...] 6.44 months ago, increased from 1.4 in 2015 TECHNIQUE: MR imaging of the prostate gland [...] it. Electronically signed by: Damien Calabrese M.D. [facility] MD IM MRI PROCEDURES Final Resul t * COLONOSCOPY (06/24/2022 7:13 AM CDT) Anatomical Region Laterality Modality Other Narrative Procedure Note Adam Muñiz MD - 06/24/2022 7:13 AM CDT [facility] Patient Name: Cristofer Hurtado Procedure Date: 06/24/2022 7:13 AM Date of : 1950 Admit Type: Outpatient Age: 71 Gender: Male Attending MD: Adam Muñiz M.D. Room: [facility] RO[facility] 2 Note Status: Finalized Patient Profile: Refer to note in patient chart for documentation of history and physical. Procedure: Colonoscopy Indications: High risk colon cancer surveillance: Personalhistory of colonic polyps, Last colonoscopy: October2015 Referring MD: Earl Roblero M.D. Providers: Adam Muñiz M.D. Impression: [...] scope was passed under direct vision. TheColonoscope [id number] was introduced through the anus and advanced [...] 7:13 AM Procedure Code(s): --- Professional --- 64364, Colonoscopy, flexible; with removal of tumor(s), polyp(s), or other lesion(s) by snare technique --- Technical --- 88211, Colonoscopy, flexible; with removal of tumor(s), polyp(s), or other lesion(s) by snare technique Diagnosis Code(s): --- Professional --- D12.2, Benign neoplasm of ascending colon K64.9, Unspecified hemorrhoids Z86.010, Personal history of colonic polyps --- Technical --- D12.2, Benign neoplasm of ascending colon K64.9, Unspecified hemorrhoids Z86.010, Personal history of colonic polyps CPT copyright 2020 [employer]. All rights reserved. The codes documented in this report are preliminary and upon professional fee coder reviewmay be revised to meet current compliance requirements. Recognized by the [employer] for promoting quality in endoscopy us Adam Muñiz MD ENDOSCOPY PROCEDURES Final Re sult * CT Abdomen Pelvis W Contrast (04/13/2014 11:30 AM AIRCRAFT ELECTRICAL SYSTEMS SPECIALIST) Anatomical Region Laterality Modality Body N/A Computed Tomogra phy 04/13/2014 11:3 0 AM AIRCRAFT ELECTRICAL SYSTEMS SPECIALIST Narrative 04/13/2014 6:05 PM AIRCRAFT ELECTRICAL SYSTEMS SPECIALIST CT Abd/Pel W [id number] Acc#: [id number] DATE OF EXAM: Apr 13 2014 CLINICAL [...] on: Apr 13 2014 6:05P Attending: DR EARL ROBLERO Requesting: DR EARL ROBLERO Requesting Fax: -- Attending Fax: -- Attending ID: [id number] Requesting ID: [id number] Report To 1 ID: [id number] Report To 1 Name: DR EARL ROBLERO Report To 1 FAX: -- NextGen Order #: Procedure Note Provider, MD Wilfrido - 06/04/2016 CT Abd/Pel W [id number] Acc#: [id number] DATE OF EXAM: Apr 13 2014 CLINICAL [...] on: Apr 13 2014 6:05P Attending: DR EARL ROBLERO Requesting: DR EARL ROBLERO Requesting Fax: -- Attending Fax: -- Attending ID: [id number] Requesting ID: [id number] Report To 1 ID: [id number] Report To 1 Name: DR EARL ROBLERO Report To 1 FAX: -- NextGen Order #: us Historical Provider MD WARE CT PROCEDURES Final R esult * Serum Hepatitis C ab (04/11/2014 1:45 PM AIRCRAFT ELECTRICAL SYSTEMS SPECIALIST) HCV ab Negative Negative HISTORICAL RESULTS Serum 04/11/2014 1:45 PM AIRCRAFT ELECTRICAL SYSTEMS SPECIALIST us Earl Roblero MD LAB BLOOD ORDERABLES Fin al Result HISTORICAL RESULTS from Last 3 Months or Most Recently Relevant to Health Maintenance Insurance [employer] MEDICARE ADVANTAGE [facility] MEDICARE [id number] [facility] MEDICARE ADVANTAGE [employer] MEDICARE ADVANTAGE Advance Directives For more information, please contact: [phone] * Full Code (Latest Code Status on File) Date Activated Date Inactivated Comments 06/24/2022 7:07 AM 06/24/2022 12:55 PM * Full Code Date Activated Date Inactivated Comments 06/24/2022 7:07 AM 06/24/2022 7:07 AM Care Teams Director Of Occupational Health Relationship Specialty Start Date End Date Earl Roblero MD [address] [place] [address] PCP - General 05/09/16 Lory Desouza PA [address] [place] [address] Physician Pallet Stone Positioner Orthopedic Surgery 09/05/21
== END 2024-09-08 12:45 | disposition home or self-care (01) ==
PROVIDERS: PCP Internal Medicine; Visit Provider Urology
DX: C61 Malignant neoplasm of prostate (principal)
CPT/HCPCS: 78815; A9596